=== PATIENT | male | born 1950 | race Caucasian/White ===

== ENCOUNTER 2022-05-31 08:02 | Outpatient (CLI) | payer MEDICARE, OTHER ==
[2022-05-31] MEDS ORDERED: Iopamidol 370 76% 100 ML VIAL ONE (15:44)
== END 2022-05-31 08:03 | disposition home or self-care (01) ==
LOC: CSHCT 08:02
PROVIDERS: ATTEND Physician Assistant Medical
DX: K29.70 Gastritis, unspecified, without bleeding (principal); B96.81 Helicobacter pylori [H. pylori] as the cause of diseases classified elsewhere; K22.2 Esophageal obstruction; N28.89 Other specified disorders of kidney and ureter; N20.0 Calculus of kidney
CPT/HCPCS: 74170; 82565; Q9967